=== PATIENT | female | born 1965 | race Caucasian/White ===

== ENCOUNTER → 2023-05-29 | Day surgery (SDC) | payer BC ==
[2023-05-28 10:16] VITALS: BMI 26.3
[~2023-05-29] MED LIST: ACETAMINOPHEN 1000 MG/100 ML BAG IVPB ONE; DEXAMETHASONE SOD PHOSPHATE 4 MG/1 ML VIAL ONE; FENTANYL CITRATE/PF 50 MCG/ML VIAL ONE; KETOROLAC TROMETHAMINE 30 MG/1 ML VIAL ONE; LACTATED RINGERS SOLUTION 1,000 ML IV SCH; MIDAZOLAM HCL 2 MG/2 ML SINGLE DOSE VIAL ONE; ONDANSETRON 4 MG/2 ML VIAL IVPUSH PRN; ONDANSETRON 4 MG/2 ML VIAL ONE; PROPOFOL 40 ML ONE; SUCCINYLCHOLINE CHLORIDE 200 MG/10 ML SYRINGE ONE; oxyCODONE HCL 5 MG TABLET PO PRN
[2023-05-29 12:33] VITALS: RESP 18
[2023-05-29 12:35] VITALS: BP 115/67; PULSE 71; TEMP 98.4
== END | disposition home or self-care (01) ==
LOC: JASU-SURG 05:04
PROVIDERS: ATTEND Obstetrics & Gynecology
PROC: 0UB98ZZ Excision of Uterus, Via Natural or Artificial Opening Endoscopic (ICD-10-PCS; principal; 2023-05-29 08:30)
DX: N95.0 Postmenopausal bleeding (principal); D25.9 Leiomyoma of uterus, unspecified
CPT/HCPCS: 76998-TC; 86850; 86900; 86901; 88305-TC; 94760